=== PATIENT | male | born 2000 | race Two or more races ===

== ENCOUNTER 2024-04-11 16:27 | Emergency (ER) | payer MEDICAID, OTHER ==
[~2024-04-11] VITALS: Ht 193 cm; Wt 69.7 kg
[2024-04-11 17:04] VITALS: BP 127/81; PULSE 102; RESP 16; TEMP 98.4; O2SAT 99
== END 2024-04-11 17:35 | disposition home or self-care (01) ==
LOC: ER 16:27
DX: H61.23 Impacted cerumen, bilateral (principal)
CPT/HCPCS: 69209; 69210